=== PATIENT | male | born 1980 | race Caucasian/White ===

== ENCOUNTER 2021-01-10 14:19 | Emergency (ER) | payer OTHER ==
[~2021-01-10] VITALS: Ht 182.9 cm; Wt 106.1 kg
[2021-01-10] MEDS ORDERED: ZOFRAN4 MG PO (17:51)
== END 2021-01-10 18:15 | disposition home or self-care (01) ==
LOC: ER1 14:19
DX: U07.1 COVID-19 (principal); Z91.013 Allergy to seafood; Z88.8 Allergy status to other drugs, medicaments and biological substances; Z88.1 Allergy status to other antibiotic agents
CPT/HCPCS: 99283; J2405